=== PATIENT | female | born 1970 | race Caucasian/White ===

== ENCOUNTER → 2018-05-04 | Outpatient (CLI) | payer OTHER | LOC: RAD 08:18 | DX: K44.9 Diaphragmatic hernia without obstruction or gangrene (principal); R13.10 Dysphagia, unspecified ==

== ENCOUNTER → 2018-06-26 | Outpatient (CLI) | payer OTHER | LOC: ULTRA 06-15 13:41 | DX: K76.0 Fatty (change of) liver, not elsewhere classified (principal) ==